=== PATIENT | male | born 1980 | race Caucasian/White ===

== ENCOUNTER 2020-09-09 10:38 | Outpatient (REF) | payer OTHER, SELFPAY | END 2020-09-09 10:39 | disposition home or self-care (01) | LOC: HO.LAB 10:38 | PROVIDERS: PCP Internal Medicine; Visit Provider Internal Medicine | DX: Z20.828 Contact with and (suspected) exposure to other viral communicable diseases (principal) | CPT/HCPCS: 36415; C9803; U0003 ==

== ENCOUNTER 2023-09-19 19:29 | Outpatient (REF) | payer OTHER, SELFPAY | END 2023-09-19 19:30 | disposition home or self-care (01) | LOC: HO.HHCLNP 19:29 | PROVIDERS: Visit Provider Emergency Medicine | DX: J10.1 Influenza due to other identified influenza virus with other respiratory manifestations (principal) | CPT/HCPCS: 87070 ==